=== PATIENT | female | born 1950 | race Caucasian/White ===

== ENCOUNTER 2017-12-05 20:40 | Emergency (ER) | payer MEDICARE, OTHER ==
[2017-12-05] MEDS: ACETAMINOPHEN 325 MG TAB PO (21:54)
== END 2017-12-05 23:33 | disposition home or self-care (01) ==
LOC: FTE 20:40
DX: R07.81 Pleurodynia (principal); I10 Essential (primary) hypertension; E11.9 Type 2 diabetes mellitus without complications
CPT/HCPCS: 71100; 99283-25